=== PATIENT | female | born 1995 | race Caucasian/White ===

== ENCOUNTER 2021-10-04 07:42 | Emergency (ER) | payer OTHER ==
[~2021-10-04] VITALS: Wt 68.0 kg
[~2021-10-04 07:42] MED LIST: NKHM
== END 2021-10-04 12:15 | disposition home or self-care (01) ==
LOC: ED 07:42
DX: S93.402A Sprain of unspecified ligament of left ankle, initial encounter (principal); Z91.040 Latex allergy status; W17.2XXA Fall into hole, initial encounter; Y93.89 Activity, other specified; Y92.89 Other specified places as the place of occurrence of the external cause; Y99.8 Other external cause status

== ENCOUNTER 2021-12-04 21:07 | Emergency (ER) | payer OTHER ==
[~2021-12-04] VITALS: Ht 157.4 cm; Wt 72.6 kg
== END 2021-12-04 22:51 | disposition home or self-care (01) ==
LOC: ED 21:07
DX: R51.9 Headache, unspecified (principal); Z20.822 Contact with and (suspected) exposure to COVID-19; Z91.040 Latex allergy status

== ENCOUNTER 2021-12-12 20:34 | Emergency (ER) | payer OTHER ==
[~2021-12-12] VITALS: Ht 147.3 cm; Wt 68.0 kg
== END 2021-12-12 22:44 | disposition home or self-care (01) ==
LOC: ED 20:34
DX: S50.01XA Contusion of right elbow, initial encounter (principal); R10.31 Right lower quadrant pain; Z91.040 Latex allergy status; W18.2XXA Fall in (into) shower or empty bathtub, initial encounter; Y93.89 Activity, other specified; Y92.098 Other place in other non-institutional residence as the place of occurrence of the external cause; Y99.8 Other external cause status

== ENCOUNTER 2022-02-19 00:13 | Emergency (ER) | payer OTHER ==
[~2022-02-19] VITALS: Ht 147.3 cm; Wt 68.0 kg
[2022-02-19] MEDS ORDERED: PREDNISONE20 M1 PO (00:49)
[2022-02-19] MEDS ORDERED: LIDODERM1 EACH T (00:49)
== END 2022-02-19 01:39 | disposition home or self-care (01) ==
LOC: ED 00:13
DX: M77.8 Other enthesopathies, not elsewhere classified (principal); M79.631 Pain in right forearm; Z91.040 Latex allergy status

== ENCOUNTER 2022-07-28 08:36 | Emergency (ER) | payer OTHER ==
[~2022-07-28] VITALS: Ht 147.3 cm; Wt 62.1 kg
[~2022-07-28 08:36] MED LIST changes: +LIDODERM1 EACH T; +PREDNISONE20 M1 PO
[2022-07-28 10:06] LABS: BASO # 0.1 10*3/uL (0.0-0.1); BASO % 0.8 % (0.0-1.0); EOS # 0.1 10*3/uL (0.0-0.4); EOS % 1.3 % (1.0-4.0); HEMATOCRIT 39.9 % (37.0-47.0); LYMPH # 3.7 10*3/uL (1.3-4.4); LYMPH % 39.9 % (27.0-41.0); MEAN CELL VOLUME 94.3 fl (81.0-99.0); MEAN CORPUSCULAR HGB 32.4 pg (27.0-31.0); MEAN CORPUSCULAR HGB CONC 34.3 g/dl (33.0-37.0); MEAN PLATELET VOLUME 9.6 fl (9.6-12.3); MONO # 0.5 10*3/uL (0.1-1.0); MONO % 5.1 % (3.0-9.0); NEUT # 4.9 10*3/uL (2.3-7.9); NEUT % 52.7 % (47.0-73.0); PLATELET COUNT AUTOMATED 330 10*3/uL (130-400); RED BLOOD COUNT 4.23 10*6/uL (4.10-5.10); RED CELL DISTRI WIDTH 12.8 % (0-14.5); WHITE BLOOD COUNT 9.3 10*3/uL (4.8-10.8)
[2022-07-28 10:22] LABS: ALKALINE PHOSPHATASE 80 U/L (46-116); BETA-HCG, QUANT < 3.0 mIU/mL (0-10); BUN 12 mg/dl (9-23); CHLORIDE 106 mmol/L (98-107); LIPASE 40 U/L (12-53); SGPT/ALT 21 U/L (10-49); TOTAL PROTEIN 6.9 gm/dL (6.0-8.0)
[2022-07-28] MEDS ORDERED: ONDANSETRON4 MG SL (10:56)
[2022-07-28] MEDS ORDERED: PEPCID20 MG PO (10:56)
== END 2022-07-28 11:03 | disposition home or self-care (01) ==
LOC: ED 08:36
PROVIDERS: Emergency Medicine
DX: R11.2 Nausea with vomiting, unspecified (principal); R10.13 Epigastric pain; Z91.040 Latex allergy status